=== PATIENT | male | born 1990 ===

== ENCOUNTER 2019-07-21 07:51 | Emergency (ER) | payer MEDICAID, SELFPAY ==
[2019-07-21 07:57] VITALS: BP 147/94; PULSE 126; RESP 18; TEMP 36.6; O2SAT 100
--- NOTE | 2019-07-21 08:06 | ED_ITS ---
I attest that this documentation has been prepared under the direction and in the presence of Annel Desir MD. Steve Dockery Scribe 07/21/19;08:06 HPI - Abdominal Pain General Chief Complaint: Urogenital-Male Stated Complaint: hernia Time Seen by Provider: 07/21/19 08:04 Related Data Home Medications Medication Instructions Recorded Confirmed No Home Medications 07/21/19 07/21/19 Allergies Allergy/AdvReac Type Severity Reaction Status Date / Time ibuprofen Allergy Mild INSOMNIA Verified 07/21/19 08:00 METALS Allergy Unknown RASH Uncoded 07/21/19 08:00 PMFSH Family History Family History (Updated 07/11/11 @ 07:46 by DOCTOR UNKNOWN) Other Family history of irritable bowel syndrome Social History Social History Alcohol intake: current Gender identity (if verbalized by the patient): Male Course Vital Signs Vital signs: Vital Signs Temperature 36.6 C 07/21/19 07:57 Pulse Rate 126 H 07/21/19 07:57 Respiratory Rate 18 07/21/19 07:57 Blood Pressure 147/94 H 07/21/19 07:57 Pulse Oximetry 100 07/21/19 07:57 Temperature 36.6 C 07/21/19 07:57 Pulse Rate 126 H 07/21/19 07:57 Respiratory Rate 18 07/21/19 07:57 Blood Pressure 147/94 H 07/21/19 07:57 Pulse Oximetry 100 07/21/19 07:57 Discharge Plan Discharge Prescriptions: No Action No Home Medications RF: 0
--- NOTE | 2019-07-21 08:11 | ED.MALEGU ---
HPI - Male Genitourinary General Chief complaint: Urogenital-Male Stated complaint: hernia Time Seen by Provider: 07/21/19 08:04 Source: patient and RN notes reviewed Mode of arrival: ambulatory Limitations: no limitations History of Present Illness HPI Narrative: Pt is a 29 y/o male presenting to the ED c/o swelling. Pt reports he developed a painful, bulging mass on his rt scrotum 3 days ago while he was moving furniture. Pt states the pain is worsened with cough and rates it at 1/10 on the pain scale. Pt notes nothing has seemed to make it better or worse. Pt denies N/V or diarrhea. Onset (ago): day(s) (3) Location: right inguinal region Associated symptoms: Reports other (Cough) Related Data Home Medications Medication Instructions Recorded Confirmed No Home Medications 07/21/19 07/21/19 Allergies Allergy/AdvReac Type Severity Reaction Status Date / Time ibuprofen Allergy Mild INSOMNIA Verified 07/21/19 08:00 METALS Allergy Unknown RASH Uncoded 07/21/19 08:00 Review of Systems Review of Systems: Narrative: Respiratory: Positive for cough. Cardiovascular: Gastrointestinal: Negative for diarrhea, nausea, or vomiting. Genitourinary: Positive for rt inguinal mass. All systems reviewed & are unremarkable except as noted in HPI and below PMFSH Past Medical History Medical History Anxiety Asthma Depression Hand fracture, right L5 vertebral fracture Tonsillitis Surgical History Surgical History History of tonsillectomy Family History Family History Other Family history of irritable bowel syndrome Social History Social History Alcohol intake: current Gender identity (if verbalized by the patient): Male Exam Const: General: no acute distress and well developed HENMT: Head: normocephalic Ears: external ears normal General nose exam: Normal external nose present Eyes: General: appearance normal, both eyes and all related structures Conjunctivae: conjunctivae normal Neck: Neck: normal visual inspection and full ROM Chest: Chest palpation & inspection: normal inspection of the chest Resp: Effort & Inspection: normal respiratory effort Auscultation: clear to auscultation bilaterally Cardio: Rate: tachycardic Rhythm: regular rhythm GI: GI Palp: No abdominal tenderness, Yes Soft to palpation and Yes Hernia present (Rt inguinal - reducible) Skin: General skin exam: normal color and turgor normal Extrem: General: normal to inspection, full ROM and no pedal edema Psych: Appearance: grossly normal Mental Status: mental status grossly normal Affect: normal affect Course Reevaluation(s) Reevaluation #1: Pt was not found in room. Pt left without instruction. He is considered to have left AMA. Date: 07/21/19 Time: 09:15 Consultations Consultation #1: Discussed case with General Surgeon Dr. Vaughan. Will follow up with pt. Date: 07/21/19 Time: 09:31 Vital Signs Vital signs: Vital Signs Temperature 36.6 C 07/21/19 07:57 Pulse Rate 126 H 07/21/19 07:57 Respiratory Rate 18 07/21/19 07:57 Blood Pressure 147/94 H 07/21/19 07:57 Pulse Oximetry 100 07/21/19 07:57 Temperature 36.6 C 07/21/19 07:57 Pulse Rate 126 H 07/21/19 07:57 Respiratory Rate 18 07/21/19 07:57 Blood Pressure 147/94 H 07/21/19 07:57 Pulse Oximetry 100 07/21/19 07:57 Discharge Plan Discharge Clinical Impression: Inguinal hernia, right Patient Disposition: Left Against Medical Advice Condition: Stable Prescriptions: No Action No Home Medications RF: 0 Interventions: Discharge Disposition Last Done: 07/21/19 09:03 IV Stop Time Documented Last Done: 07/21/19 09:04 Follow-up/Referrals: UNKNOWN,DOCTOR [Primary Care Provider] - Discharge Date/Time: 07/21/19 09:04
== END 2019-07-21 09:04 | disposition left against medical advice (07) ==
LOC: ANHED 08:25
PROVIDERS: Emergency Provider Emergency Medicine
DX: K40.90 Unilateral inguinal hernia, without obstruction or gangrene, not specified as recurrent (principal)
CPT/HCPCS: 99281

== ENCOUNTER 2019-10-21 10:23 | Emergency (ER) | payer BC, SELFPAY ==
--- NOTE | 2019-10-21 10:31 | ED.GENADULT ---
HPI - General Adult General Chief complaint: Eye Problems Stated complaint: eye injury Time Seen by Provider: 10/21/19 10:48 Source: patient Mode of arrival: ambulatory Limitations: no limitations History of Present Illness HPI narrative: 29-year-old male patient presents to the [facility] with complaints of right eye irritation x3 days. Patient states that he was using a chainsaw cutting down some trees about 3 days ago and thinks he got something in his eye. Patient states that he was wearing glasses at the time. Patient states he has washed out his eye multiple times but states he feels like it is getting worse. Patient does complain of sensitivity to the light. Patient states he has had a lot of clear watery drainage and pain to the area. Denies any vision changes but states is just sensitive to the light and has been wearing dark glasses. Denies any fevers. Related Data Allergies Allergy/AdvReac Type Severity Reaction Status Date / Time ibuprofen Allergy Mild INSOMNIA Verified 07/21/19 08:00 METALS Allergy Unknown RASH Uncoded 07/21/19 08:00 Review of Systems Review of Systems: Narrative: CONSTITUTIONAL: Denies fever, chills, or sweats. EYES: Denies visual changes, positive right redness, and clear discharge x3 days. ENT: Denies rhinorrhea, congestion, sore throat, or otalgia. CARDIOVASCULAR: Denies chest pain, palpitations, or edema. RESPIRATORY: Denies cough or dyspnea. GASTROINTESTINAL: Denies abdominal pain, nausea, vomiting, or diarrhea. GENITOURINARY: Denies dysuria or hematuria. SKIN: Denies rash or itching. MUSCULOSKELETAL: Denies back pain, joint pain, or myalgia. NEUROLOGIC: Denies headache, numbness, or weakness. PSYCHIATRIC: Denies anxiety or depression. [facility] Past Medical History Medical History Anxiety Asthma Depression Hand fracture, right L5 vertebral fracture Tonsillitis Surgical History Surgical History History of tonsillectomy Family History Family History Other Family history of irritable bowel syndrome Social History Social History (Reviewed 10/21/19 @ 10:31 by NILS Camargo Alcohol intake: current Gender identity (if verbalized by the patient): Male Comments At the time of my signature I agree with nursing past medical history, surgical, social, and family history. There is no relevant family history pertinent to the presenting complaint. Exam Narrative: Exam Narrative: GENERAL: Well-appearing, well-nourished, and in no acute distress. HEAD: Normocephalic, atraumatic. EYES: PERRLA and EOM intact without limitation or complaint of pain, no periorbital soft tissue swelling ,no erythema, warmth or tenderness noted, no obvious deformity. No crusting or swelling.clear tearing noted from the right eye.positive photophobia. No nystagmus No FB or lesion on lid eversion. Corneas grossly clear however after the eye was dilated does appear that there is a small abrasion noted to the 3:00 area of the cornea, no obvious FB or hyphens/hypopyon. No injection to sclera. Lids and lashes clear. ENT: Nares clear, no rhinorrhea or epistaxis. Mucous membranes moist. NECK: Supple. No lymphadenopathy CHEST: Clear to auscultation. No respiratory distress. HEART: Regular rate and rhythm. No murmur heard. Normal peripheral pulses. ABDOMEN: Soft, nontender, nondistended, normal active bowel sounds. EXTREMITIES: Normal range of motion. No edema. SKIN: Warm, dry, no rash. NEURO: No focal deficits. Alert and oriented x3. Course Vital Signs Vital signs: Vital Signs Temperature 36.6 C 10/21/19 10:37 Pulse Rate 103 H 10/21/19 10:37 Respiratory Rate 20 10/21/19 10:37 Blood Pressure 159/89 H 10/21/19 10:37 Pulse Oximetry 99 10/21/19 10:37 Temperature 36.6 C 10/21/19 10:37 Pulse Rate 103 H 10/21/19 10:37 Respi
[2019-10-21 10:37] VITALS: BP 159/89; PULSE 103; RESP 20; TEMP 36.6; O2SAT 99
== END 2019-10-21 11:00 | disposition home or self-care (01) ==
PROVIDERS: Emergency Provider Nurse Practitioner Family; PCP Physician Assistant
DX: S05.01XA Injury of conjunctiva and corneal abrasion without foreign body, right eye, initial encounter (principal); X58.XXXA Exposure to other specified factors, initial encounter
CPT/HCPCS: 99213; A9270; G0463

== ENCOUNTER 2019-11-21 00:52 | Outpatient (CLI) | payer BC, SELFPAY ==
[2019-11-21 18:41] LABS: SARS-CoV-2 RNA PCR Negative
== END 2019-11-21 00:53 | disposition home or self-care (01) ==
LOC: ANHCOVIDDT 00:52
PROVIDERS: PCP Physician Assistant; Visit Provider Surgery
DX: Z01.812 Encounter for preprocedural laboratory examination (principal); Z11.59 Encounter for screening for other viral diseases
CPT/HCPCS: 87635; C9803; U0003

== ENCOUNTER 2019-11-23 01:39 | Day surgery (SDC) | payer BC, SELFPAY ==
[2019-11-10 12:12] VITALS: BMI 22.0
[2019-11-23 09:30] VITALS: BP 142/77; PULSE 92; RESP 17; TEMP 37; O2SAT 100
[2019-11-23] MEDS: LACTATED RINGERS 1,000 ML 30 ML IV CONT ×2 (09:40→12:00)
[2019-11-23] MEDS: KETOROLAC 15 MG/ML VIAL (*BKC) IV PUSH (09:40)
[2019-11-23] MEDS: ACETAMINOPHEN 500 MG TABLET 1000 MG PO (09:50)
--- NOTE | 2019-11-23 09:57 | WPDANESEPPF ---
Anes - Initial Pre Proc Eval Procedure: Operation Date: 11/23/19 11:00 Proposed Procedures p Right Inguinal Hernia Repair - Homer Gonzalez MD Date/Time: 11/23/19 09:57 Surgeon: Homer Gonzalez MD Pre Op Diagnosis: Right Inguinal Hernia Patient Data Age: 29 Gender: M Height: 5 ft 8 in Weight: 64.8 kg Last Vital Signs Temp 37.0 C 11/23/19 09:30 Pulse 92 11/23/19 09:30 Resp 17 11/23/19 09:30 BP 142/77 H 11/23/19 09:30 Pulse Ox 100 11/23/19 09:30 Allergies Allergy/AdvReac Type Severity Reaction Status Date / Time ibuprofen AdvReac Mild INSOMNIA, Verified 11/10/19 12:13 RESTLESS LEGS SYMPTOMS METALS Allergy Unknown RASH Uncoded 11/10/19 12:13 Home Medications Medication Instructions Recorded Confirmed Type acetaminophen [Tylenol Extra 500 mg PO BID 11/10/19 11/10/19 History Strength] multivitamin 1 tablet PO DAILY 11/10/19 11/10/19 History Patient hx anesthesia problems: none Family hx anesthesia problems: none PMFSH Past Medical History Medical History Anxiety Asthma Depression Hand fracture, right L5 vertebral fracture Tonsillitis Surgical History Surgical History History of hand surgery surgery on bilateral thumbs History of tonsillectomy Family History Family History Father History of hernia repair Mother History of hernia repair Hypertension Other Hypertension Family history of irritable bowel syndrome Cancer Social History Social History Smoking packs per day: 1 Smoking cigarettes per day: 20.0 Years smoked: 10 Smoking pack-years: 10.00 Smoking status: Current every day smoker Tobacco type: cigarettes Alcohol intake: current Alcohol use details: 5-10/WEEK Additional occupation/education comments: [employer] Gender identity (if verbalized by the patient): Male Spiritual care concerns: No Anes - Eval Final PreProcedure Day of Procedure 11/23/19 09:57 Patient weight: normal Heart: regular rate and rhythm Lungs: decreased breath sounds Airway: Mallampati scale class II Neurological: alert and oriented Last oral intake: >/= 8 hours ASA classification: III Emergent: no Anesthetic plan: proceed Anesthesia type and monitoring: general GIVS and standard monitoring Informed Consent: The patient's anesthetic plan and its attendant risks and benefits were discussed with the patient/family/POA. Questions were solicited and answers provided to the satisfaction of the patient/family/POA.
--- NOTE | 2019-11-23 10:23 | WPDHPUPDATE1 ---
History and Physical Update Update Date/Time: 11/23/19 10:23 History and Physical has been reviewed, including an updated exam of the patient. There are NO changes in the patient's condition. Risks, benefits, and alternatives have been discussed and questions answered. Patient agrees to proceed with procedure.
[2019-11-23] MEDS: ceFAZolin 2 GM/D5W 50 ML 2 GM/50 ML BAG IVPB (10:40)
[2019-11-23 12:00] VITALS: BP 126/86; PULSE 80; RESP 16; O2SAT 100
[2019-11-23 12:30] VITALS: BP 128/91; PULSE 75; RESP 16
[2019-11-23 13:00] VITALS: BP 134/88; PULSE 74; RESP 18
[2019-11-23 13:30] VITALS: BP 125/71; PULSE 78; RESP 18
--- NOTE | 2019-11-23 14:38 | SUR.PHASEII ---
1355; PT AWAKE AND ALERT. DENIES PAIN. STATES HE IS READY TO GO HOME.
--- NOTE | 2019-11-23 15:06 | P.OP_ITS ---
Procedure Note - Detailed Date of procedure: 11/23/19 Pre-op diagnosis: Right Inguinal Hernia Right inguinal hernia Post-op diagnosis: same (Indirect hernia) Procedure performed: Repair of right inguinal hernia with 6 cm Parietex hernia mesh system Description of procedure: The patient was taken to surgery and IV sedation was administered. The right groin and genitalia were prepped and draped. Proposed incision was marked on the skin. Local was infiltrated into the skin and the deeper subcutaneous tissues. Incision was made and deepened through the subcutaneous. Crossing veins were cauterized and divided. Dissection was carried through Beverley's fascia down to the external oblique aponeurosis. The aponeurosis was exposed as was the external ring. Additional local anesthesia was infiltrated deep to the aponeurosis in the area of the spermatic cord and inguinal canal contents. The aponeurosis was opened laterally and extended medially through the external ring. The leaves of the aponeurosis were dissected free from the spermatic cord. The ileoinguinal nerve was carefully preserved throughout the dissection and was left attached to the spermatic cord. The cord was then mobilized medially on a Neavitt drain. The cord was dissected back to the internal ring. Dissection was then carried out in the anteromedial spermatic cord. The hernia sac was found and dissected free. The sac was opened so that I could place a finger within the hernia sac and facilitate this dissection. This opening was then closed with a running 3 0 Vicryl suture. The sac was then dissected back to a high dissection. It was dunked into the retroperitoneum. A 6 centimeter Parietex [place] was chosen. It was folded to form a plug. It was placed in the defect. The edges were sutured to the transversalis fascia with interrupted 3 0 Vicryl suture. The hernia defect was then partially closed with some additional 3 0 Vicryl suture. Patch was then cut to the appropriate size and placed over the inguinal canal floor. The lateral leaves were passed beyond the cord. The cord and ileoinguinal nerve were then laid over the patch. The external oblique aponeurosis was closed with interrupted 3 0 Vicryl suture. Beverley's fascia was closed with interrupted 3 0 Vicryl suture. The subcutaneous was closed with interrupted 4 0 Vicryl suture. Four 0 Vicryl subcuticular skin sutures were placed. The skin was closed finally with a running 4 0 Monocryl skin suture. The wound was dressed with Exofin surgical adhesive. The patient was awakened and taken to recovery in good condition. Sponge and needle counts were correct x2. Anesthesia: MAC and local (0.5% Marcaine with Exparel) Surgeon: Homer Gonzalez MD [employer] Professor: Jay Fuller RN,FA Estimated blood loss (mL): 5 Drains: No Packing: No Pathology: none sent Complications: None Condition: stable Disposition: PACU Findings: Indirect inguinal hernia. No sliding hernia was noted.
== END 2019-11-23 14:05 | disposition home or self-care (01) ==
PROVIDERS: PCP Physician Assistant; Visit Provider Surgery
PROC: (CPT 49505; principal; 2019-11-23 11:00)
DX: K40.90 Unilateral inguinal hernia, without obstruction or gangrene, not specified as recurrent (principal); I88.8 Other nonspecific lymphadenitis; F17.210 Nicotine dependence, cigarettes, uncomplicated
CPT/HCPCS: 49505; 88304; 88305; A9270; C1781; C9290; J0690; J1885; J2250; J2704; J3010; J7120

== ENCOUNTER 2021-04-17 18:01 | Emergency (ER) | payer BC, SELFPAY ==
[2021-04-17 18:08] VITALS: BP 162/95; PULSE 101; RESP 16; TEMP 35.8; O2SAT 97
[2021-04-17 18:09] VITALS: BP 162/95; PULSE 101; RESP 16; TEMP 35.8; O2SAT 97
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
== END 2021-04-17 18:35 | disposition short-term general hospital (02) ==
LOC: EXPCOLL 18:04
PROVIDERS: Emergency Provider Nurse Practitioner
DX: S62.102A Fracture of unspecified carpal bone, left wrist, initial encounter for closed fracture (principal); S62.101A Fracture of unspecified carpal bone, right wrist, initial encounter for closed fracture; V86.05XA Driver of 3- or 4- wheeled all-terrain vehicle (ATV) injured in traffic accident, initial encounter; J45.909 Unspecified asthma, uncomplicated; F17.210 Nicotine dependence, cigarettes, uncomplicated
CPT/HCPCS: 99214; A4565; G0463

== ENCOUNTER 2021-04-17 18:50 | Emergency (ER) | payer BC, SELFPAY ==
[2021-04-17] VITALS (13 sets, daily range): BP systolic 138–157; BP diastolic 97–108; PULSE 98–112; RESP 10–23; TEMP 35.8; O2SAT 97–100
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
[2021-04-17] MEDS: MORPHINE SULFATE (*CRX) 4 MG/ML INJ IV PUSH (19:32)
[2021-04-17] MEDS: ONDANSETRON INJ 4 MG/2 ML VIAL IV PUSH (19:32)
[2021-04-17 19:33] LABS: Basophils Absolute Auto 0.1 K/mm3 (0.0-0.1); Basophils Percent Auto 0.3 % (0.2-1.2); Eosinophils Absolute Auto 0.1 K/mm3 (0-0.3); Eosinophils Percent Auto 0.3 % (0-4.4); Hematocrit 40.5 % (42.0-52.0); Hemoglobin 14.4 g/dL (14.0-18.0); Immature Granulocyte Absolute 0.21 K/mm3 (0.00-0.031); Immature Granulocyte Percent A 1.2 % (0-0.5); Lymphocytes Absolute Auto 1.99 K/mm3 (0.9-3.2); Lymphocytes Percent Auto 11.3 % (18.3-44.2); Mean Corpuscular HGB Conc 35.6 g/dl (32-36); Mean Corpuscular Hemoglobin 33.5 pg (26-34); Mean Corpuscular Volume 94.2 fl (80-100); Mean Platelet Volume 9.1 fl (7.4-10.4); Monocytes Absolute Auto 1.4 K/mm3 (0.1-0.6); Monocytes Percent Auto 7.8 % (2.6-8.5); Neutrophils Absolute Auto 13.9 K/mm3 (1.3-6.7); Neutrophils Percent Auto 79.1 % (45.5-73.1); Platelet Count Result 383 k/mm3 (150-375); Red Cell Distribution Width 12.7 % (11.5-14.5); White Blood Count 17.6 K/mm3 (4.5-10.0)
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
[2021-04-17 19:43] LABS: Alanine Aminotransferase 65 U/L (4-50); Albumin Level 4.6 g/dL (3.5-5.1); Alkaline Phosphatase 113 U/L (38-126); Anion Gap 12 mmol/L (8-16); Aspartate Amino Transferase 56 U/L (17-59); Bilirubin,Total 0.5 mg/dL (0.2-1.3); Blood Urea Nitrogen 6 mg/dL (9-20); Calcium 9.2 mg/dL (8.4-10.2); Carbon Dioxide 23 mmol/L (22-30); Chloride 100 mmol/L (98-107); Estimated CRCL calculation 126 ml/min; Estimated Glomerular Filt Rate > 60; Glucose 119 mg/dL (65-110); Sodium 135 mmol/L (137-145)
[2021-04-17 19:46] LABS: INR 0.9; Prothrombin Time 12.5 Seconds (11.1-14.7)
[2021-04-17 19:47] LABS: Partial Thromboplastin Time 26.3 SECONDS (22.3-36.8)
[2021-04-17] MEDS: MORPHINE SULFATE (*CRX) 2 MG/ML INJ IV PUSH (19:55)
[2021-04-17] MEDS: fentaNYL CITRATE INJ (*CRX) 100 MCG/2 ML VIAL 50 MCG IV PUSH (20:46)
[2021-04-17 20:47] LABS: Add Urine Microscopic? NO; Appearance Urine Clear (Clear); Bilirubin Urine Negative (Negative); Blood Urine Negative (Negative); Color Urine Straw (Yellow); Glucose Urine UA Negative (Negative); Ketones Urine Negative (Negative); Leukocyte Esterase Ur Negative LEU/UL (Negative); Nitrate Urine Negative (Negative); Protein Urine Negative (Negative); Urobilinogen Urine Negative mg/dL (<2.0)
[2021-04-17 20:56] LABS: Specific Grav Ur 1.003 (1.001-1.035)
[2021-04-17 21:07] LABS: Amphetamine Screen Urine Negative (Negative); Barbiturate Screen Urine Negative (Negative); Benzodiazepines Screen Urine Negative (Negative); Cannabinoid Screen Urine Positive (Negative); Cocaine Screen Urine Negative (Negative); Methadone Screen Urine Negative (Negative); Opiate Screen Urine Positive (Negative); Phencyclidine Screen Urine Negative (Negative)
[2021-04-17] MEDS: KETOROLAC 30 MG/ML VIAL (*BKC) IV PUSH (21:43)
[2021-04-17] MEDS: POTASSIUM CHLORIDE 20 MEQ TABLET 40 MEQ PO (23:15)
[2021-04-17] MEDS: GABAPENTIN 100 MG CAPSULE PO (23:16)
== END 2021-04-17 23:40 | disposition home or self-care (01) ==
PROVIDERS: Physician Assistant; Emergency Provider Emergency Medicine
DX: S52.572A Other intraarticular fracture of lower end of left radius, initial encounter for closed fracture (principal); S52.612A Displaced fracture of left ulna styloid process, initial encounter for closed fracture; S52.511A Displaced fracture of right radial styloid process, initial encounter for closed fracture; J45.909 Unspecified asthma, uncomplicated; F17.210 Nicotine dependence, cigarettes, uncomplicated; V86.55XA Driver of 3- or 4- wheeled all-terrain vehicle (ATV) injured in nontraffic accident, initial encounter
CPT/HCPCS: 29125; 36415; 70450; 71260; 72125; 73110; 74177; 80053; 80307; 81003; 85025; 85610; 85730; 96374; 96375; 99284; A4565; A9270; J1885; J2270; J2405; J3010; Q9967

== ENCOUNTER 2022-08-18 19:44 | Emergency (ER) | payer BC, SELFPAY ==
--- NOTE | ~2022-08-18 | XR_ITS ---
EXAM: XR ankle RT min 3V DATE: 08/18/2022 19:55 HISTORY: twisted ankle . COMPARISON: 12/10/2005. FINDINGS: Normal mineralization. No acute fracture or dislocation. 2 mm rounded calcific density pro jecting in the lateral joint space possibly representing dystrophic soft tissue calcification. No lyt ic or blastic lesion. Joint spaces are maintained. No erosion or periosteal change. Anterior and late ral ankle soft tissue swelling. IMPRESSION: No acute osseous finding in the right ankle. Reviewed, dictated and finalized at location K.
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
[2022-08-18 19:54] VITALS: BP 159/102; PULSE 104; RESP 18; TEMP 37.2; O2SAT 100
--- NOTE | 2022-08-18 20:04 | PC.NURSE ---
1954- Pt stated, his BP is always elevated this is why he avoids going to the
== END 2022-08-18 20:18 | disposition home or self-care (01) ==
PROVIDERS: Emergency Provider Nurse Practitioner Family
DX: S93.401A Sprain of unspecified ligament of right ankle, initial encounter (principal); W17.89XA Other fall from one level to another, initial encounter; J45.909 Unspecified asthma, uncomplicated; F17.210 Nicotine dependence, cigarettes, uncomplicated
CPT/HCPCS: 73610; 99213; G0463

== ENCOUNTER 2022-09-05 13:12 | Emergency (ER) | payer BC, SELFPAY ==
--- NOTE | ~2022-09-05 | XR_ITS ---
EXAMINATION: XR ankle LT min 3V DATE: 09/05/2022 13:36 INDICATION: Left ankle pain TECHNIQUE: Anteroposterior, lateral, mortise, and additional oblique view of the ankle were obtained. COMPARISON: None. FINDINGS: Bone alignment is normal. There is no fracture. The soft tissues are unremarkable. IMPRESSION: 1. No acute osseous abnormality. Reviewed, dictated and finalized at location B.
[2022-09-05 13:19] VITALS: BP 126/92; PULSE 93; RESP 16; TEMP 36.9; O2SAT 99
[2022-09-05 13:20] VITALS: BP 126/92; PULSE 93; RESP 16; TEMP 36.9; O2SAT 99
--- NOTE | 2022-09-05 13:20 | ED.LOWEXIN ---
HPI - Extremity Injury (Lower) General Chief Complaint: Extremity Injury, Lower Stated Complaint: left heel pain Time Seen by Provider: 09/05/22 13:20 Source: patient Mode of arrival: ambulatory Limitations: no limitations History of Present Illness HPI Narrative: 32 y/o male presented for c/o left lateral ankle pain for 2 weeks after injury. Patient was seen at this facility on 08/18/22 for right ankle injury; dx with sprain; and as a result of that injury he used the left foot to push a metal hitch. This resulted in immediate pain, and has had pain progressively worsening over the past few days. Taking Tylenol for pain. Rates 3/10 at rest up to 9/10 with walking. Denies redness, swelling or bruising to the left ankle. Related Data Allergies Allergy/AdvReac Type Severity Reaction Status Date / Time ibuprofen AdvReac Mild INSOMNIA, Verified 09/05/22 13:20 RESTLESS LEGS SYMPTOMS METALS Allergy Unknown RASH Uncoded 09/05/22 13:20 Review of Systems Review of Systems: CONSTITUTIONAL: Denies body aches, fever, chills EYES: Denies visual changes ENT: Denies rhinorrhea, congestion CARDIOVASCULAR: Denies chest pain, palpitations, or edema. RESPIRATORY: Denies cough or dyspnea. GASTROINTESTINAL: Denies abdominal pain, nausea, vomiting, or diarrhea. SKIN: Denies rash, itching, or wounds. MUSCULOSKELETAL: per HPI NEUROLOGIC: Denies headache, numbness, tingling, or weakness. All systems reviewed & are unremarkable except as noted in HPI and below PMFSH Past Medical History Medical History (Updated 09/05/22 @ 14:00 by Karen Sommer APRN) Anxiety Asthma Depression Hand fracture, right L5 vertebral fracture Tonsillitis Surgical History Surgical History History of hand surgery surgery on bilateral thumbs History of inguinal hernia repair repair of right inguinal hernia with 6cm Parietex hernia mesh system 11/23/19 History of tonsillectomy Family History Family History Father History of hernia repair Mother History of hernia repair Hypertension Other Hypertension Family history of irritable bowel syndrome Cancer Social History Social History Smoking packs per day: 1 Smoking cigarettes per day: 20.0 Years smoked: 10 Smoking pack-years: 10.00 Smoking status: Current every day smoker Tobacco type: cigarettes Alcohol intake: current Alcohol use details: 5-10/WEEK Occupation/Education: occupation Additional occupation/education comments: [employer] Gender identity (if verbalized by the patient): Male Spiritual care concerns: No Comments At time of signature, I have reviewed and agree with nursing past medical, surgical, social and family history unless otherwise noted. Please see nursing chart for further information. There is no relevant family history pertinent to the presenting complaint Exam Narrative: GENERAL: Well-appearing, well-nourished, and in no acute distress. HEAD: Normocephalic, atraumatic. EYES: PERRLA, conjunctivae clear NECK: Supple. CHEST: Speaks in full sentences. No respiratory distress. HEART: Regular rate and rhythm. Normal and equal peripheral pulses. EXTREMITIES: Left foot has normal strength and sensation, normal range of motion with flexion/extension/rotation, but endorses pain with movement. Tenderness to inferior aspect of lateral malleolus. No swelling or ecchymosis, No open wounds or obvious deformity; alignment normal. Achilles tendon reflex intact. Pulse palpable and equal bilaterally, skin warm, dry, pink. Capillary refill less than 3 seconds. SKIN: Warm, dry, no rash. NEURO: Alert and oriented x3. PSYCH: Normal mood and affect Course Course Emergency Course: Patient is aware of diagnosis, understands and agrees to treatment plan. Anticip
== END 2022-09-05 14:04 | disposition home or self-care (01) ==
PROVIDERS: Emergency Provider Nurse Practitioner Family
DX: M25.572 Pain in left ankle and joints of left foot (principal); F17.210 Nicotine dependence, cigarettes, uncomplicated; J45.909 Unspecified asthma, uncomplicated
CPT/HCPCS: 73610; 99213; G0463

== ENCOUNTER 2023-11-26 08:26 | Emergency (ER) | payer OTHER, BC, SELFPAY ==
--- NOTE | ~2023-11-26 | XR_ITS ---
EXAMINATION: XR ankle LT min 3V DATE: 11/26/2023 09:26 INDICATION: Left ankle pain post injury TECHNIQUE: Anteroposterior, oblique, mortise, and lateral views of the left ankle were obtained. COMPARISON: 09/05/2022 FINDINGS: Alignment is normal. No fracture. Joint spaces are well maintained. No ankle joint effusion. The so ft tissues are unremarkable. IMPRESSION: 1. Unchanged normal left ankle radiographs. Reviewed, dictated and finalized at location A.
--- NOTE | ~2023-11-26 | XR_ITS ---
EXAMINATION: XR knee LT 3V DATE: 11/26/2023 09:26 INDICATION: Left knee injury TECHNIQUE: Anteroposterior, oblique and crosstable lateral views of the left knee were obtained COMPARISON: None. FINDINGS: Alignment is normal. No fracture. Joint spaces appear normal on nonweightbearing imaging with no oste ophytosis. No joint effusion/layering lipohemarthrosis. Soft tissues are unremarkable. IMPRESSION: 1. Negative left knee radiographs. Reviewed, dictated and finalized at location A.
[2023-11-26 08:38] VITALS: BP 98/62; PULSE 88; RESP 16; TEMP 36.7; O2SAT 98
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
== END 2023-11-26 09:48 | disposition home or self-care (01) ==
PROVIDERS: Emergency Provider Nurse Practitioner
DX: S89.92XA Unspecified injury of left lower leg, initial encounter (principal); S99.912A Unspecified injury of left ankle, initial encounter; X58.XXXA Exposure to other specified factors, initial encounter; J45.909 Unspecified asthma, uncomplicated; F41.9 Anxiety disorder, unspecified
CPT/HCPCS: 73562; 73610; 99214; G0463

== ENCOUNTER 2024-01-13 09:31 | Outpatient (CLI) | payer BC, SELFPAY ==
--- NOTE | 2024-01-13 11:30 | NEURO_ITS ---
Impression: # Complains of trauma to left lower extremity and inability to dorsiflex left foot although says getting better over time. # Nerve Conduction study reveals decreased amplitude responses of left peroneal nerve with needle exam revealing decreased motor unit potentials in left EDB suggestive of left peroneal trauma and gradual recovery. Nerve Conduction Studies Anti Sensory Summary Table Stim Site NR Peak (ms) P-T Amp (?V) Site1 Site2 Delta-P (ms) Dist (cm) Srinivasan (m/s) Left Sup Fibular Anti Sensory (Ant Lat Mall) 14 cm 3.3 25.0 14 cm Ant Lat Mall 3.3 16.0 48 Left Sural Anti Sensory (Lat Mall) Calf 3.5 18.4 Calf Lat Mall 3.5 16.0 46 Motor Summary Table Stim Site NR Onset (ms) O-P Amp (mV) Site1 Site2 Delta-0 (ms) Dist (cm) Srinivasan (m/s) Left Peroneal Motor (Vastus Med) Ankle 5.5 1.1 Popit Ankle 8.6 40.0 47 Popit 14.1 0.9 B Fib Ankle 6.4 32.0 50 B Fib 11.9 1.0 Left Tibial Motor (Abd Johnson Brev) Ankle 5.0 5.8 Knee Ankle 9.2 43.0 47 Knee 14.2 6.4 F Wave Studies NR F-Lat (ms) L-R F-Lat (ms) Left Peroneal (Mrkrs) (EDB) 59.58 Left Tibial (Mrkrs) (Abd Hallucis) 56.60 EMG Side Muscle Nerve Root Ins Act Fibs Amp Dur Recrt Comment Left AntTibialis Dp Br Fibular L4-5 Nml Nml Nml Nml +1 Left Gastroc Tibial S1-2 Nml Nml Nml Nml Nml Left Fibularis Long Sup Br Fibular L5-S1 Nml Nml Nml Nml Nml Left Flex Dig Long Tibial L5-S2 Nml Nml Nml Nml Nml Left Ext Dig Brev Dp Br Fibular L5, S1 Nml Nml Decr Nml +2 Left QuadratusFem QuadFemoris L4-5, S1 Nml Nml Nml Nml Nml MTDD
== END 2024-01-13 09:32 | disposition home or self-care (01) ==
LOC: ANHNEURO 09:34
PROVIDERS: PCP Nurse Practitioner Family; Visit Provider Podiatrist Foot & Ankle Surgery
DX: S84.12XA Injury of peroneal nerve at lower leg level, left leg, initial encounter (principal); X58.XXXA Exposure to other specified factors, initial encounter
CPT/HCPCS: 95886; 95908

== ENCOUNTER 2024-11-02 13:13 | Emergency (ER) | payer BC, SELFPAY ==
--- NOTE | ~2024-11-02 | XR_ITS ---
EXAM/ PROCEDURE: XR foot LT min 3V - 11/02/2024 13:25 CDT HISTORY: 34 years old Male with trauma, distal, pain to dorsal aspect COMPARISON: None available TECHNIQUE: Three view(s) FINDINGS/ IMPRESSION: There are no fractures or dislocations.Joint spaces are within normal limits Reviewed, dictated and finalized at location A.
--- NOTE | 2024-11-02 13:14 | ED.GENADULT ---
HPI - General Adult General Chief complaint: Extremity Injury, Lower Stated complaint: Left Foot Pain Time Seen by Provider: 11/02/24 13:14 Source: patient Mode of arrival: ambulatory Limitations: no limitations History of Present Illness HPI narrative: Patient is a 34-year-old male presenting with complaint of left foot pain. He reports that his slide sandal got caught up and caused him to roll his L. foot. Injury was sustained shortly [employer]. No tx initiated [employer]. NO paresthesias to the LLE. No additional complaints. Related Data Home Medications ?Medication ?Instructions ?Recorded ?Confirmed ?Last Taken ?Type carvedilol 25 mg tablet 25 mg PO DAILY 11/26/23 11/26/23 Unknown History clonazepam 1 mg tablet 1 mg PO DAILY 11/26/23 11/26/23 Unknown History buspirone 10 mg tablet mg 11/02/24 Unknown History buspirone 5 mg tablet mg 11/02/24 Unknown History gabapentin 300 mg capsule mg 11/02/24 Unknown History zolpidem 10 mg tablet mg 11/02/24 Unknown History Allergies Allergy/AdvReac Type Severity Reaction Status Date / Time ibuprofen AdvReac Mild INSOMNIA, Verified 11/02/24 13:46 RESTLESS LEGS SYMPTOMS Review of Systems Review of Systems: CONSTITUTIONAL: Denies body aches, fever, chills, or sweats. EYES: Denies visual changes, redness, or discharge. ENT: Denies rhinorrhea, congestion, sore throat, or otalgia. CARDIOVASCULAR: Denies chest pain, palpitations, or edema. RESPIRATORY: Denies cough or dyspnea. GASTROINTESTINAL: Denies abdominal pain, nausea, vomiting, or diarrhea. GENITOURINARY: Denies dysuria or hematuria. SKIN: Denies rash, itching, or wounds. MUSCULOSKELETAL: Reports pain to the L. foot NEUROLOGIC: Denies headache, numbness, tingling, or weakness. PSYCH: Denies depression or anxiety. All systems reviewed & are unremarkable except as noted in HPI and below [facility] Past Medical History Medical History (Updated 11/02/24 @ 13:55 by Narciso Green APRN) Anxiety Depression L5 vertebral fracture Hand fracture, right Asthma Tonsillitis Surgical History Surgical History History of inguinal hernia repair repair of right inguinal hernia with 6cm Parietex hernia mesh system 11/23/19 History of hand surgery surgery on bilateral thumbs History of tonsillectomy Family History Family History Father History of hernia repair Mother History of hernia repair Hypertension Other Hypertension Family history of irritable bowel syndrome Cancer Social History Social History Smoking packs per day: 1 Smoking cigarettes per day: 20.0 Years smoked: 10 Smoking pack-years: 10.00 Smoking status: Current every day smoker Tobacco type: cigarettes Alcohol intake: current Alcohol use details: 5-10/WEEK Occupation/Education: occupation Additional occupation/education comments: [employer] Gender identity (if verbalized by the patient): Male Spiritual care concerns: No Exam Narrative: GENERAL: Well-appearing, well-nourished, and in no acute distress. HEAD: Normocephalic, atraumatic. EYES: EOMI. No redness or drainage. Conjunctivae normal. ENT: Mucous membranes pink and moist. NECK: Normal AROM. Supple. CHEST: No respiratory distress. HEART: Normal rate Normal peripheral pulses. MUSCULOSKELETAL: +FROM +DNVI to the LLE EXTREMITIES: Normal range of motion. Mild edema and TTP noted to the dorsal aspect of the L foot near the 4th and 5th metatarsophalangeal joints. SKIN: Warm, dry, no rash. Capillary refill normal. Normal skin turgor. NEURO: No focal deficits. Alert and oriented x3. Gait steady. PSYCH: Normal affect. No signs of depression or anxiety. Course Course Emergency Course: Please be advised this is a medical document. It is intended for [id number] communication. It is written in medical language and may contain unfamiliar abbreviations or verbiage. Medical documents are intended to carry relevant information, facts as evident, and the clinical opinion of the practitioner at the time of the encounter. This dictation may have been done utilizing a voice recognition system. Attempts have been made to correct errors. However, there may be uncorrected grammatical, spelling, and recognition errors present. Level of Care: Express Care Visit Vital Signs Vital signs: Vital Signs Temperature 97.9 F 11/02/24 13:20 Pulse Rate 112 H 11/02/24 13:20 Respiratory Rate 16 11/02/24 13:20 Blood Pressure 152/91 H 11/02/24 13:20 Pulse Oximetry 100 11/02/24 13:20 Oxygen Delivery Room Air 11/02/24 13:20 Temperature 97.9 F 11/02/24 13:20 Pulse Rate 112 H 11/02/24 13:20 Respiratory Rate 16 11/02/24 13:20 Blood Pressure 152/91 H 11/02/24 13:20 Pulse Oximetry 100 11/02/24 13:20 Oxygen Delivery Room Air 11/02/24 13:20 Procedures Orthopedic Splinting/Casting Injury #1: Splinting/Casting Date: 11/02/24 Splinting/Casting Time: 13:58 Side: left Lower Extremity Injury Location: foot Lower Extremity Immobilizer: Bladimir wrap Splint: prefabricated Pre-Procedure Neuro Vascular Exam: normal Post-Procedure Neuro Vascular Exam: normal Medical Decision Making Vital Signs Vital Signs: Vital Signs Temperature 97.9 F 11/02/24 13:20 Pulse Rate 112 H 11/02/24 13:20 Respiratory Rate 16 11/02/24 13:20 Blood Pressure 152/91 H 11/02/24 13:20 Pulse Oximetry 100 11/02/24 13:20 Oxygen Delivery Room Air 11/02/24 13:20 Temperature 97.9 F 11/02/24 13:20 Pulse Rate 112 H 11/02/24 13:20 Respiratory Rate 16 11/02/24 13:20 Blood Pressure 152/91 H 11/02/24 13:20 Pulse Oximetry 100 11/02/24 13:20 Oxygen Delivery Room Air 11/02/24 13:20 Discharge Plan Discharge Clinical Impression: Elevated blood pressure reading in office without diagnosis of hypertension Sprain of foot, left Qualifiers: Encounter type: initial encounter Qualified Code(s): S93.602A - Unspecified sprain of left foot, initial encounter Patient Disposition: Home Condition: Stable Instructions: Antibiotic Form Additional Instructions: You can take up to 4000 mg of Tylenol, up to 2400 mg of ibuprofen per day. rest, ice, elevate the extremity, wear the Bladimir wrap.Go straight to ER should your symptoms become worse or should any new symptoms develop Patient Language: Portuguese Prescriptions: No Action carvedilol 25 mg tablet 25 mg PO DAILY clonazepam 1 mg tablet 1 mg PO DAILY buspirone 5 mg tablet buspirone 10 mg tablet gabapentin 300 mg capsule zolpidem 10 mg tablet Follow-up/Referrals: Richard,Lesvia Rojas NP [Primary Care Provider] - 11/02/24 Time of Disposition: 13:55
[2024-11-02 13:20] VITALS: BP 152/91; PULSE 112; RESP 16; TEMP 36.6; O2SAT 100
== END 2024-11-02 14:15 | disposition home or self-care (01) ==
PROVIDERS: Emergency Provider Registered Nurse; PCP Nurse Practitioner Family
DX: S93.602A Unspecified sprain of left foot, initial encounter (principal); R03.0 Elevated blood-pressure reading, without diagnosis of hypertension; F17.210 Nicotine dependence, cigarettes, uncomplicated; Z79.899 Other long term (current) drug therapy; X50.0XXA Overexertion from strenuous movement or load, initial encounter
CPT/HCPCS: 73630; 99213; G0463